=== PATIENT | female | born 1970 | race Caucasian/White ===

== ENCOUNTER → 2021-05-16 | Outpatient (CLI) | payer BC ==
--- NOTE | 2021-05-16 17:51 | DIREP ---
PROCEDURE:XRAY KNEE 2 VWS-LT COMPARISON:None. INDICATIONS:M25.562 PAIN IN LT KNEE FINDINGS: BONES:No visible fracture. JOINTS:No dislocation or significant joint space narrowing. Tricompartmental osteophytosis most prominent in the patellofemoral and medial compartments. No effusion is seen. SOFT TISSUES:Generalized soft tissue prominence about the knee. No radiopaque foreign body. OTHER:No additional findings. CONCLUSION:Mild osteoarthritis of the left knee most prominent in the medial and patellofemoral compartments. No acute process. Dictated by: Hubert Hayes M.D. on 05/16/2021 at 05:49 PM
== END | disposition home or self-care (01) ==
LOC: RAD 14:49
PROVIDERS: ATTEND Nurse Practitioner Family
DX: M17.12 Unilateral primary osteoarthritis, left knee (principal); M25.562 Pain in left knee
CPT/HCPCS: 73560-LT

== ENCOUNTER → 2024-06-09 | Outpatient (CLI) | payer BC | END | disposition home or self-care (01) | LOC: RAD 11:01 | PROVIDERS: ATTEND Nurse Practitioner Family | DX: M25.512 Pain in left shoulder (principal) | CPT/HCPCS: 73030-LT ==

== ENCOUNTER → 2024-07-25 | Outpatient (CLI) | payer BC | END | disposition home or self-care (01) | LOC: RAD 08:47 | PROVIDERS: ATTEND Nurse Practitioner Family | DX: S46.812A Strain of other muscles, fascia and tendons at shoulder and upper arm level, left arm, initial encounter (principal); M19.012 Primary osteoarthritis, left shoulder; M62.512 Muscle wasting and atrophy, not elsewhere classified, left shoulder; M25.412 Effusion, left shoulder; M77.8 Other enthesopathies, not elsewhere classified; M25.812 Other specified joint disorders, left shoulder; M62.89 Other specified disorders of muscle; R60.0 Localized edema; M25.612 Stiffness of left shoulder, not elsewhere classified; M25.512 Pain in left shoulder; G89.29 Other chronic pain; X58.XXXA Exposure to other specified factors, initial encounter; Y93.89 Activity, other specified; Y92.89 Other specified places as the place of occurrence of the external cause; Y99.8 Other external cause status | CPT/HCPCS: 73221 ==